=== PATIENT | female | born 1975 | race Caucasian/White ===

== ENCOUNTER 2018-11-25 05:19 | Emergency (ER) | payer OTHER ==
[~2018-11-25] VITALS: Ht 167.6 cm; Wt 59.0 kg
[2018-11-25 10:54] VITALS: BP 121/83
== END 2018-11-25 11:05 | disposition home or self-care (01) ==
LOC: ER 05:19
DX: F10.129 Alcohol abuse with intoxication, unspecified (principal); Z85.41 Personal history of malignant neoplasm of cervix uteri